=== PATIENT | male | born 1985 | race Hispanic/Latino ===

== ENCOUNTER 2023-10-28 12:54 | Emergency (ER) | payer SELFPAY ==
[~2023-10-28] VITALS: Ht 157.5 cm; Wt 52.0 kg
[2023-10-28 13:08] VITALS: BP 118/67
[2023-10-28 13:30] VITALS: BP 107/65
[2023-10-28 13:38] LABS: BASO% 0.7 % (0-3); EOS% 1.8 % (0-8); HEMATOCRIT 45.7 % (39.0-50.0); HEMOGLOBIN 15.6 g/dl (14.0-18.0); IMMATURE GRANULOCYTES 0.1 % (0.0-5.0); LYMPH% 20.6 % (15-41); MEAN CELL VOLUME 93.8 fL CALC (80.0-100.0); MEAN CORPUSCULAR HGB CONC 34.1 g/dL CAL (32.0-36.0); MONO% 5.6 % (2-13); NEUT# 5.45 thou/uL (1.82-7.42); NEUT% 71.2 % (42-76); RED BLOOD COUNT 4.87 mill/uL (4.70-6.10); RED CELL DISTRI WIDTH 11.6 % (11.5-15.5)
[2023-10-28 13:54] LABS: ALBUMIN 4.8 g/dL (3.2-5.0); BILIRUBIN, TOTAL 0.8 mg/dL (0.2-1.3); POTASSIUM 4.3 mmol/l (3.5-5.1); TOTAL PROTEIN 7.8 g/dL (6.3-8.2)
[2023-10-28 15:45] VITALS: BP 107/65
== END 2023-10-28 15:50 | disposition home or self-care (01) | DRG 392 ==
LOC: ED 12:54
PROVIDERS: Family Medicine
DX: R10.11 Right upper quadrant pain (principal); N13.30 Unspecified hydronephrosis; K82.4 Cholesterolosis of gallbladder